=== PATIENT | male | born 1955 | race Caucasian/White ===

== ENCOUNTER 2022-10-06 09:30 | Outpatient (RCR) | payer MEDICARE, SELFPAY ==
--- NOTE | 2022-09-28 10:54 | HO.PS.ADMBH ---
[facility] Medical History (Updated 10/02/22 @ 16:26 by Nikhil Galvan MD) Alcohol dependence CAD (coronary artery disease) Chronic kidney disease Gout Hyperlipidemia Hypertension Major depression, recurrent, chronic Obesity Peripheral neuropathy Postural dizziness with near syncope Type II diabetes mellitus Vitamin D deficiency Surgical History (Updated 09/28/22 @ 08:53 by Amanda Pickering RN) Hx of CABG S/P aortic valve replacement Social History: The patient is a his of cancer number of years ago. He has 2 children 1 in [place] 1 in [facility] the patient is looking to sell his house and move in with his mother the patient has a degree in accounting he later became a hazmat truck driver the patient's children are supportive. The patient is currently living with his mother while he is trying to sell his house Substance History: Long history of alcohol use worsening over the past 12 years since his 's . The patient was raised in [place] he has 2 sisters. Meds/Allergies Meds Home Medications Medication Instructions Recorded Confirmed Type allopurinol 100 mg tablet 1 tab PO DAILY 09/28/22 09/28/22 History bupropion HCl 300 mg 24 hr tablet, 1 tab PO DAILY 09/28/22 09/28/22 History extended release glipizide 5 mg tablet 1 tab PO DAILY 09/28/22 09/28/22 History insulin glargine 100 unit/mL (3 unit subcut DAILY 09/28/22 History mL) subcutaneous pen (Basaglar KwikPen U-100 Insulin) metformin 500 mg tablet 1 tab PO BID 09/28/22 09/28/22 History metoprolol tartrate 25 mg tablet 1 tab PO BID 09/28/22 09/28/22 History mirtazapine 15 mg tablet 7.5 mg PO BEDTIME 09/28/22 09/28/22 History multivitamin 1 tab PO DAILY 09/28/22 09/28/22 History pyridoxine (vitamin B6) 50 mg 50 mg PO DAILY 09/28/22 09/28/22 History tablet torsemide 20 mg tablet 10 mg PO DAILY 09/28/22 09/28/22 History Allergies Allergies Allergy/AdvReac Type Severity Reaction Status Date / Time bee pollen [bee stings] Allergy Unknown Verified 09/28/22 08:54 Mental Status Exam Mental Status Exam Patient Appearance: Well Grooomed Patient Orientation: Person, Place, Time and Situation Level of Consciousness: Awake and Appropriate Patient Behavior: Appropriate and Cooperative Mood Description: Depressed and Blunted Affect Description: Appropriate and Constricted Patient Cognition Impaired: No Ability to Follow Directions: Good Speech Pattern: Clear Memory Description: Intact Hallucinations: None Delusions: Not Present Thought Process: Intact and Goal Oriented Thought Content: positive for Goal Oriented, positive for Preoccupation, negative for Suicidal Ideation or negative for Homicidal Ideation Depressive Symptoms: Increased Anxiety, Increased Irritability, Hopelessness, Increased Fatigue, Thoughts of /Suicide, Loss of Energy and Difficulty Concentrating Judgement: Good Judgement and Insight: Patient states he would like to be sober no active self-harm Assessment & Plan Assessment & Plan (1) Major depression, recurrent, chronic: Status: Acute Code(s): F33.9 - Major depressive disorder, recurrent, unspecified Assessment and Plan: Continue Wellbutrin and mirtazapine for now encourage free commitment to sobriety recovery talking with his sponsor discussed options for help with cravings and cued including naltrexone patient had been sober on past with Antabuse patient is aware that alcohol contributes to depression and depression is contributing to his alcohol use SSRI treatment in the past had not hopeful although patient had not extensive sobriety he also had not has really taken medication regularly. Continue PHP (2) Alcohol dependence: Status: Acute Code(s): F10.20 - Alcohol dependence, uncomplicated Patient educated on: diagnosis, medication risk/benefits, substance abuse and medical condition Reason for continued partial hosp. stay Substantial Risk for: inability to function, rapid decompensation and med/psych decompensation Certification I certify that partial hospital treatment is medically necessary due to the symptoms and problems resulting from the patient's mental illness and the failure to treat the patient at the partial hospital level of care would likely result in the patient requiring inpatient psychiatric care which could not be prevented at a less intensive level of care. Time Spent With Patient Time: Total time managing care of this patient today ____ minutes.
[2022-09-28 13:25] VITALS: BMI 34.0
[2022-09-28 15:21] VITALS: BP 126/78; PULSE 80
--- NOTE | 2022-09-28 15:36 | PC.ADMIT ---
Patient was referred to [facility] by [facility] behavioral inpatient unit where he was admitted per [facility] records with a history of alcohol withdrawal (BAL in ER 265), Lactic acidosis, alcoholic ketoacidosis, alcohol use disorder, CAD, HF, DM2, HTN. He reportedly presented to the ER c/o worsening depression. He reportedly was seen in the ER the day before for a fall. He returned to the ER on the advise of SCHOOL LIBRARIAN. He also has a history of admission to on 08/02-08/18/22 with similar complaints. Hx of multiple detox admissions. He reports he wants to stop drinking. Reports last had ETOH on Monday drinking a few nips . Denied sxs of current ETOH withdrawal. VSS, no tremors, no diaphoresis. Patient denied history of ETOH seizures however in his screening tool her reports hx of seizures. See [facility] and [facility] paperwork for more information. Patient is alert and oriented x4. Calm and cooperative. Denied SI or thoughts to harm or kill himself. Medications reconciled with patient and [facility] discharge paperwork. Reports taking medications as prescribed. Gave patient a copy of his safety plan if needed and I reviewed his safety plan with him. Patient reports long history of drinking ETOH and reported increase in use after his 12 years ago. He reports longest period of sobriety is one year. He reports he has a sponsor and is attending AA and plans on attending [facility] with his sponsor. He reports struggling with depression sxs. Denied SI. He was given a copy of his safety plan if needed and I reviewed the plan with him.
--- NOTE | 2022-10-04 09:04 | PC.NURSE ---
Patient called and spoke to [facility] staff Adelina Maddox stating he is going to take the day off today as he has things he needs to do.He told this publications writer yesterday that he is getting his house ready to sell. He is currentlty staying with his mother. He reports he has been sober for ETOH attending AA meetings and has a sponsor.
--- NOTE | 2022-10-05 10:22 | HO.OPPROGNO ---
Subjective Subjective Date of Service: 10/05/22 Reason For Visit: depression,AUD Interim History: pt feels overwhelmed at times feeling somewhat better more energy more hopeful remains sober was unclear whether he should be sertraline has been taking Wellbutrin mirtazapine at bedtime Feeling more able to do things hoping to sell his house soon which has been in negotiation he has been going to AA meetings Medication Compliance: Yes Attending Groups: Yes Review of Systems Gout diabetes hypertension generally in control Medical Review of Systems: unchanged Mental Status Exam Mental Status Exam Patient Appearance: Well Grooomed Patient Orientation: Person, Place, Time and Situation Level of Consciousness: Awake and Appropriate Patient Behavior: Appropriate and Cooperative Mood Description: Appropriate Affect Description: Appropriate Patient Cognition Impaired: No Ability to Follow Directions: Good Speech Pattern: Clear Memory Description: Intact Hallucinations: None Delusions: Not Present Thought Process: Intact and Goal Oriented Thought Content: positive for Goal Oriented, positive for Preoccupation, negative for Suicidal Ideation or negative for Homicidal Ideation Depressive Symptoms: Increased Irritability Judgement: Good Judgement and Insight: Patient with much campuzano affect bright future oriented no self-harming thoughts energy improved Diagnostics Vital Signs (24Hr): BMI result Body Mass Index 34.0 Discharge Plan Discharge Attending provider: Yosvany Mott Medications: New naltrexone 50 mg Tablet 50 mg PO DAILY 30 Days Qty: 30 0RF Changed mirtazapine 15 mg Tablet 15 mg PO BEDTIME 30 Days Qty: 30 0RF No Action multivitamin Tablet 1 tab PO DAILY metformin 500 mg tablet 1 tab PO BID torsemide 20 mg tablet 10 mg PO DAILY Rx Instructions: Take a half a tab daily. allopurinol 100 mg tablet 1 tab PO DAILY pyridoxine (vitamin B6) 50 mg Tablet 50 mg PO DAILY glipizide 5 mg tablet 1 tab PO DAILY bupropion HCl 300 mg tablet extended release 24 hr 1 tab PO DAILY metoprolol tartrate 25 mg tablet 1 tab PO BID insulin glargine [Basaglar KwikPen U-100 Insulin] 100 unit/mL (3 mL) insulin pen 12 unit subcut DAILY Assessment & Plan Assessment & Plan (1) Major depression, recurrent, chronic: Status: Acute Code(s): F33.9 - Major depressive disorder, recurrent, unspecified (2) Alcohol dependence: Status: Acute Code(s): F10.20 - Alcohol dependence, uncomplicated (3) Peripheral neuropathy: Status: Acute Code(s): G62.9 - Polyneuropathy, unspecified Plan Discussed with patient use of Ala for neuropathy has been taking mirtazapine 15 mg continue Wellbutrin 300 mg blood pressure unremarkable mood improved patient sober continue plan of care encourage a meetings naltrexone continued Patient educated on: diagnosis, medication risk/benefits, substance abuse, therapeutic strategies and medical condition Informed Consent: understands Reason for contiued therapy Substantial Risk for: rapid decompensation Total time managing care of this patient today ____ minutes.
== END 2022-10-06 23:59 | disposition home or self-care (01) ==
LOC: HO.PHPA 09:30
PROVIDERS: Visit Provider Psychiatry & Neurology Psychiatry
DX: F33.9 Major depressive disorder, recurrent, unspecified (principal); F10.20 Alcohol dependence, uncomplicated; G62.9 Polyneuropathy, unspecified; Z79.899 Other long term (current) drug therapy
CPT/HCPCS: 90791; 90853